=== PATIENT | female | born 1990 | race Caucasian/White ===

== ENCOUNTER 2022-12-21 08:34 | Inpatient (IN) | payer BC, OTHER ==
[~2022-12-21] VITALS: Ht 172.7 cm; Wt 98.3 kg
[2022-12-21 08:57] LABS: Urine WBC None Seen /hpf (0 - 5)
[2022-12-21 09:13] LABS: Basophils # (auto) 0 10 ^3/uL (0-0.2); Basophils % (auto) 0.5 % (0.0-2.0); Eosinophils # (auto) 0 10 ^3/uL (0-0.8); Eosinophils % (auto) 0.1 % (0.0-7.0); Hematocrit 42.6 % (36.0-46.0); Hemoglobin 14.4 g/dL (12.2-16.2); Lymphocytes # (auto) 1.4 10 ^3/uL (0.4-5.4); Lymphocytes % (auto) 14.2 % (10.0-50.0); Mean Corpuscular Hemoglobin 29.7 pg (28.0-32.0); Mean Corpuscular Hgb Conc. 33.9 g/dL (32.0-36.0); Mean Corpuscular Volume 87.7 fL (80.0-100.0); Monocytes # (auto) 0.5 10 ^3/uL (0-1.3); Monocytes % (auto) 5.1 % (0.0-12.0); Neutrophils # (auto) 7.9 10 ^3/uL (1.6-8.6); Neutrophils % (auto) 80.1 % (37.0-80.0); Red Blood Cells 4.85 10^6/uL (4.0-5.20); Red Cell Distribution Width 14.2 % (11.8-14.3); White Blood Cell 9.8 10^3/uL (4.4-10.8)
[2022-12-21 09:43] LABS: Urine Bacteria NONE SEEN /hpf (None Seen); Urine Blood Negative /uL (Negative); Urine Specific Gravity 1.005 (1.001-1.035)
[2022-12-21 09:47] LABS: Albumin 4.4 g/dL (3.4-5.0); Calcium 10.1 mg/dL (8.5-10.1); Potassium 4.1 mmol/L (3.5-5.1)
[2022-12-21 09:50] LABS: BUN/Creatinine Ratio 21.1 (10.0-20.0); Bilirubin, Total 1.3 mg/dL (0.2-1.0); Total Protein 8.2 g/dL (6.4-8.2)
[2022-12-21] MEDS ORDERED: cefTRIAXone 1GM/50ML D5W 50 ML IV ONE ×2 (11:45→13:47)
[2022-12-21] MEDS ORDERED: MORPHINE SULFATE 4 MG/ML SYR/VIAL IV ONE (11:45)
[2022-12-21] MEDS ORDERED: ONDANSETRON HCL 4 MG/2 ML VIAL IV ONE (11:45)
[2022-12-21] MEDS ORDERED: metroNIDAZOLE 500MG/100ML 100 ML IV ONE ×2 (11:45→13:47)
[2022-12-21] MEDS ORDERED: FLUT50SP NAS (12:58)
[2022-12-21] MEDS ORDERED: MET500T PO (12:58)
[2022-12-21] MEDS ORDERED: BENZ100C97 PO (12:58)
[2022-12-21] MEDS: SODIUM CHLORIDE 0.9% 1,000 ML IV SCH ×2 (13:00→23:00)
[2022-12-21] MEDS ORDERED: KETOROLAC TROMETH 30 MG/ML 1ML VIAL IV ONE (13:00)
[2022-12-21] MEDS ORDERED: PANTOPRAZOLE 40 MG/10 ML VIAL INJ IV ONE (13:15)
[2022-12-21] MEDS ORDERED: LIDOCAINE W/ EPINEPHRINE 1% 20ML VIAL ONE (13:37)
[2022-12-21] MEDS ORDERED: BUPIVACAINE 0.25% INJ 50ML VIAL ONE (13:38)
[2022-12-21] MEDS ORDERED: ceFAZolin 1GM/50ML 100 ML IV ONE (13:39)
[2022-12-21] MEDS ORDERED: HYDROmorphone HCL 2 MG/ML VL/or syr ONE (13:40)
[2022-12-21] MEDS ORDERED: ONDANSETRON HCL 4 MG/2 ML VIAL ONE (13:41)
[2022-12-21] MEDS ORDERED: MIDAZOLAM HCL 2MG/2ML 2ml VIAL (1mg/ml) ONE (13:41)
[2022-12-21] MEDS ORDERED: DexAMETHasone SOD PHOS 10MG/1ML VIAL INJ ONE (13:41)
[2022-12-21] MEDS ORDERED: KETOROLAC TROMETH 30 MG/ML 1ML VIAL ONE (13:41)
[2022-12-21] MEDS ORDERED: fentaNYL CITRATE 100 MCG/2 ML VL ONE (13:41)
[2022-12-21] MEDS ORDERED: GLYCOPYRROLATE 0.2 MG/ML 1ML VIAL ONE (13:41)
[2022-12-21] MEDS ORDERED: ROCURONIUM 10MG/ML 10ML VIAL IV ONE (13:41)
[2022-12-21] MEDS ORDERED: ePHEDrine SULFATE 50 MG/ML AMP ONE ×2 (13:41→13:54)
[2022-12-21] MEDS ORDERED: PROPOFOL 10 MG/ML 20 ML IV ONE (13:41)
[2022-12-21] MEDS ORDERED: ONDANSETRON HCL 4 MG/2 ML VIAL IV PRN ×2 (14:45→15:00)
[2022-12-21] MEDS: HYDROmorphone HCL 2 MG/ML VL/or syr IV ONE (14:45)
[2022-12-21] MEDS ORDERED: MEPERIDINE HCL (25 MG/ML) 1ML VIAL IM ONE (15:00)
[2022-12-21] MEDS ORDERED: HYDROmorphone HCL 2 MG/ML VL/or syr IV PRN (15:00)
[2022-12-21 16:00] VITALS: BP 123/62
[2022-12-21] MEDS ORDERED: MORPHINE SULFATE INJ 2 MG/ml SYRG IV PRN (17:00)
[2022-12-21 20:00] VITALS: BP 110/51
[2022-12-21] MEDS: metroNIDAZOLE 500MG/100ML 100 ML IV SCH (20:36)
[2022-12-21] MEDS: ceFAZolin 1GM/50ML 50 ML IV SCH (21:51)
[2022-12-21] MEDS: HYDROcodone-ACET 5/325MG TAB PO PRN (21:51)
[2022-12-21 22:00] VITALS: BP 110/51
[2022-12-21] MEDS ORDERED: metroNIDAZOLE 500MG/100ML 100 ML IV SCH (22:00)
[2022-12-22] MEDS: HYDROcodone-ACET 5/325MG TAB PO PRN ×2 (04:14→14:07)
[2022-12-22] MEDS: metroNIDAZOLE 500MG/100ML 100 ML IV SCH ×2 (04:36→13:00)
[2022-12-22 05:00] VITALS: BP 102/55
[2022-12-22] MEDS: ceFAZolin 1GM/50ML 50 ML IV SCH ×2 (05:59→14:00)
[2022-12-22 06:40] LABS: Basophils # (auto) 0 10 ^3/uL (0-0.2); Basophils % (auto) 0.2 % (0.0-2.0); Eosinophils # (auto) 0 10 ^3/uL (0-0.8); Hematocrit 35.5 % (36.0-46.0); Lymphocytes # (auto) 1.2 10 ^3/uL (0.4-5.4); Lymphocytes % (auto) 13.9 % (10.0-50.0); Mean Corpuscular Hemoglobin 29.9 pg (28.0-32.0); Mean Corpuscular Hgb Conc. 33.8 g/dL (32.0-36.0); Mean Corpuscular Volume 88.4 fL (80.0-100.0); Monocytes # (auto) 0.6 10 ^3/uL (0-1.3); Monocytes % (auto) 7.3 % (0.0-12.0); Neutrophils # (auto) 6.9 10 ^3/uL (1.6-8.6); Neutrophils % (auto) 78.6 % (37.0-80.0); Red Blood Cells 4.01 10^6/uL (4.0-5.20); Red Cell Distribution Width 13.8 % (11.8-14.3); White Blood Cell 8.8 10^3/uL (4.4-10.8)
[2022-12-22 06:58] LABS: Albumin 3.3 g/dL (3.4-5.0); Calcium 8.6 mg/dL (8.5-10.1); Potassium 4.1 mmol/L (3.5-5.1)
[2022-12-22 07:02] LABS: BUN/Creatinine Ratio 18.2 (10.0-20.0); Bilirubin, Total 0.7 mg/dL (0.2-1.0); Total Protein 6.3 g/dL (6.4-8.2)
[2022-12-22 08:00] VITALS: BP 106/53
[2022-12-22] MEDS ORDERED: cefTRIAXone 1GM/50ML D5W 50 ML IV SCH (09:00)
[2022-12-22] MEDS: SODIUM CHLORIDE 0.9% 1,000 ML IV SCH (09:43)
[2022-12-22] MEDS ORDERED: PANTOPRAZOLE 40 MG/10 ML VIAL INJ IV SCH (10:00)
[2022-12-22 12:00] VITALS: BP 105/61
[2022-12-22] MEDS ORDERED: METR-344 PO (13:18)
[2022-12-22] MEDS ORDERED: LEVO750T8 PO (13:18)
== END 2022-12-22 15:30 | disposition home or self-care (01) | DRG 343 ==
LOC: ER 08:34 → OVERFLOW 12:57 → WEST WING 16:36
PROVIDERS: ADMIT Nurse Practitioner Family; ATTEND Nurse Practitioner Acute Care
PROC: 0DTJ4ZZ Resection of Appendix, Percutaneous Endoscopic Approach (ICD-10-PCS; principal; 2022-12-21 14:00)
DX: K35.80 Unspecified acute appendicitis (principal)
CPT/HCPCS: 36415; 74176; 80053; 81001; 83605; 84702; 85025; 85610; 87040; 99291; C9113; G0378; J0690; J0696; J1100; J1885; J2250; J2405; J2704; J3490

== ENCOUNTER → 2023-06-05 | Outpatient (CLI) | payer BC ==
[~2023-06-05] MED LIST: BENZ100C97 PO; FLUT50SP NAS; LEVO750T8 PO; MET500T PO; METR-344 PO
[2023-06-05 08:23] LABS: Basophils # (auto) 0 10 ^3/uL (0-0.2); Basophils % (auto) 0.6 % (0.0-2.0); Eosinophils # (auto) 0.1 10 ^3/uL (0-0.8); Eosinophils % (auto) 1.8 % (0.0-7.0); Hematocrit 41.4 % (36.0-46.0); Hemoglobin 13.8 g/dL (12.2-16.2); Lymphocytes # (auto) 1.8 10 ^3/uL (0.4-5.4); Lymphocytes % (auto) 39.1 % (10.0-50.0); Mean Corpuscular Hemoglobin 29.6 pg (28.0-32.0); Mean Corpuscular Hgb Conc. 33.3 g/dL (32.0-36.0); Mean Corpuscular Volume 88.8 fL (80.0-100.0); Monocytes # (auto) 0.4 10 ^3/uL (0-1.3); Monocytes % (auto) 9.2 % (0.0-12.0); Neutrophils # (auto) 2.2 10 ^3/uL (1.6-8.6); Neutrophils % (auto) 49.3 % (37.0-80.0); Red Blood Cells 4.66 10^6/uL (4.0-5.20); Red Cell Distribution Width 13.7 % (11.8-14.3); White Blood Cell 4.5 10^3/uL (4.4-10.8)
[2023-06-05 08:51] LABS: Alanine Aminotransferase 24 U/L (7-40); Albumin 4.8 g/dL (3.2-4.8); Alkaline Phosphatase 44 U/L (46-116); Anion Gap 7 (5-15); Aspartate Aminotransferase 30 U/L (13-40); BUN/Creatinine Ratio 18.3 (10.0-20.0); Bilirubin, Total 1.3 mg/dL (0.2-1.0); Blood Urea Nitrogen 17 mg/dL (9-23); Calcium 10.2 mg/dL (8.5-10.1); Carbon Dioxide 26 mmol/L (20-30); Chloride 106 mmol/L (98-107); Cholesterol 191 mg/dL (< 200); Glucose 87 mg/dL (74-106); HDL Cholesterol 72 mg/dL (40-59); LDL Cholesterol 104 mg/dL (< 100); Sodium 139 mmol/L (136-145); Total Protein 7.5 g/dL (5.7-8.2); Triglycerides 71 mg/dL (< 150)
[2023-06-05 08:54] LABS: Urine Bacteria NONE SEEN /hpf (None Seen); Urine Blood Negative /uL (Negative); Urine Clarity Clear (Clear); Urine Color Yellow (Yellow); Urine Mucus FEW (None Seen); Urine Protein, UAD TRACE (Negative); Urine Specific Gravity 1.029 (1.001-1.035); Urine Urobilinogen Normal (Negative); Urine WBC 1 /hpf (0 - 5)
[2023-06-05 09:27] LABS: Folate (Folic Acid) 17.65 ng/mL (>5.38)
== END | disposition home or self-care (01) ==
LOC: LAB 07:50
PROVIDERS: ATTEND Internal Medicine
DX: E61.2 Magnesium deficiency (principal); R78.89 Finding of other specified substances, not normally found in blood; E78.41 Elevated Lipoprotein(a); R68.89 Other general symptoms and signs; R94.6 Abnormal results of thyroid function studies; E79.0 Hyperuricemia without signs of inflammatory arthritis and tophaceous disease; R82.991 Hypocitraturia; E55.9 Vitamin D deficiency, unspecified; R82.90 Unspecified abnormal findings in urine; R82.79 Other abnormal findings on microbiological examination of urine; D51.9 Vitamin B12 deficiency anemia, unspecified
CPT/HCPCS: 36415; 80053; 80061; 81001; 82306; 82607; 82746; 83036; 84443; 84550; 85025; 87086

== ENCOUNTER → 2023-08-09 | Outpatient (CLI) | payer BC ==
[2023-08-09 08:06] LABS: Basophils # (auto) 0 10 ^3/uL (0-0.2); Basophils % (auto) 0.6 % (0.0-2.0); Eosinophils # (auto) 0.1 10 ^3/uL (0-0.8); Eosinophils % (auto) 2.9 % (0.0-7.0); Hematocrit 43.4 % (36.0-46.0); Hemoglobin 14.1 g/dL (12.2-16.2); Lymphocytes # (auto) 1.9 10 ^3/uL (0.4-5.4); Lymphocytes % (auto) 44.8 % (10.0-50.0); Mean Corpuscular Hemoglobin 29.7 pg (28.0-32.0); Mean Corpuscular Hgb Conc. 32.5 g/dL (32.0-36.0); Mean Corpuscular Volume 91.2 fL (80.0-100.0); Monocytes # (auto) 0.3 10 ^3/uL (0-1.3); Monocytes % (auto) 7.5 % (0.0-12.0); Neutrophils # (auto) 1.9 10 ^3/uL (1.6-8.6); Neutrophils % (auto) 44.2 % (37.0-80.0); Nucleated Red Blood Cells % 0.2 %; Red Blood Cells 4.76 10^6/uL (4.0-5.20); Red Cell Distribution Width 14.5 % (11.8-14.3); White Blood Cell 4.3 10^3/uL (4.4-10.8)
[2023-08-09 08:16] LABS: Urine Bacteria NONE SEEN /hpf (None Seen); Urine Blood TRACE /uL (Negative); Urine Clarity Clear (Clear); Urine Color Yellow (Yellow); Urine Protein, UAD Negative (Negative); Urine Specific Gravity 1.022 (1.001-1.035); Urine Urobilinogen Normal (Negative); Urine WBC <1 /hpf (0 - 5)
[2023-08-09 08:55] LABS: Alanine Aminotransferase 34 U/L (7-40); Alkaline Phosphatase 49 U/L (46-116); Anion Gap 5 (5-15); BUN/Creatinine Ratio 19.8 (10.0-20.0); Blood Urea Nitrogen 18 mg/dL (9-23); Calcium 9.9 mg/dL (8.5-10.1); Carbon Dioxide 26 mmol/L (20-30); Chloride 110 mmol/L (98-107); Glucose 84 mg/dL (74-106); LDL Cholesterol 106 mg/dL (< 100); Potassium 4.9 mmol/L (3.5-5.1); Sodium 141 mmol/L (136-145); Triglycerides 60 mg/dL (< 150)
[2023-08-09 08:56] LABS: Albumin 4.7 g/dL (3.2-4.8); Aspartate Aminotransferase 37 U/L (13-40); Bilirubin, Total 0.6 mg/dL (0.2-1.0); Cholesterol 193 mg/dL (< 200); HDL Cholesterol 72 mg/dL (40-59); Total Protein 7.4 g/dL (5.7-8.2)
[2023-08-09 09:04] LABS: Folate (Folic Acid) 19.46 ng/mL (>5.38)
[2023-08-09 09:30] LABS: Uric Acid 4.1 mg/dL (3.1-7.8)
== END | disposition home or self-care (01) ==
LOC: LAB 07:44
PROVIDERS: ATTEND Internal Medicine
DX: R78.89 Finding of other specified substances, not normally found in blood (principal); E78.9 Disorder of lipoprotein metabolism, unspecified; R68.89 Other general symptoms and signs; R73.09 Other abnormal glucose
CPT/HCPCS: 36415; 80053; 80061; 81001; 82306; 82607; 82746; 83036; 84443; 84550; 85025; 87086; 87088

== ENCOUNTER → 2023-09-17 | Outpatient (CLI) | payer BC ==
[2023-09-17 10:45] LABS: Leuteinizing Hormone 9.4 IU/L; Prolactin 9.58 ng/mL (2.8-29.2)
== END | disposition home or self-care (01) ==
LOC: LAB 08:10
PROVIDERS: ATTEND Nurse Practitioner Family
DX: Z00.00 Encounter for general adult medical examination without abnormal findings (principal); N92.6 Irregular menstruation, unspecified
CPT/HCPCS: 36415; 83002; 83970; 84144; 84146; 84403

== ENCOUNTER 2023-12-15 12:41 | Emergency (ER) | payer BC ==
[~2023-12-15] VITALS: Ht 170.2 cm; Wt 76.4 kg
[2023-12-15 14:08] VITALS: BP 132/87; PULSE 74; RESP 18; TEMP 99.5; O2SAT 98
[2023-12-15] MEDS: KETOROLAC TROMETH 60MG/2ML VIAL IM ONE (14:39)
[2023-12-15] MEDS ORDERED: CYCL-839 PO (15:32)
[2023-12-15] MEDS ORDERED: IBUP-1456 PO (15:32)
== END 2023-12-15 15:56 | disposition home or self-care (01) ==
LOC: ER 12:41
DX: S86.811A Strain of other muscle(s) and tendon(s) at lower leg level, right leg, initial encounter (principal); Z79.899 Other long term (current) drug therapy; X50.1XXA Overexertion from prolonged static or awkward postures, initial encounter; Y93.02 Activity, running; Y92.89 Other specified places as the place of occurrence of the external cause; Y99.0 Civilian activity done for income or pay
CPT/HCPCS: 93971; 96372; 99285; J1885

== ENCOUNTER → 2023-12-24 | Outpatient (CLI) | payer BC ==
[~2023-12-24] MED LIST changes: +CYCL-839 PO; +IBUP-1456 PO
[2023-12-24 09:41] LABS: Urine Bacteria None Seen /hpf (None Seen)
[2023-12-24 09:57] LABS: Urine Blood Negative /uL (Negative); Urine Clarity Clear (Clear); Urine Color Light-Yellow (Yellow); Urine Protein, UAD Negative (Negative); Urine Specific Gravity 1.018 (1.001-1.035); Urine Urobilinogen Normal (Negative); Urine WBC <1 /hpf (0 - 5)
[2023-12-24 10:24] LABS: Erythrocyte Sedimentation Rate 8 mm/hr (0-20)
[2023-12-24 10:28] LABS: Alanine Aminotransferase 18 U/L (7-40); Albumin 4.7 g/dL (3.2-4.8); Alkaline Phosphatase 49 U/L (46-116); Anion Gap 3 (5-15); Aspartate Aminotransferase 18 U/L (13-40); BUN/Creatinine Ratio 25.3 (10.0-20.0); Blood Urea Nitrogen 20 mg/dL (9-23); Calcium 10.1 mg/dL (8.5-10.1); Carbon Dioxide 26 mmol/L (20-30); Chloride 107 mmol/L (98-107); Glucose 86 mg/dL (74-106); LDL Cholesterol 102 mg/dL (< 100); Magnesium 1.9 mg/dL (1.6-2.6); Potassium 4.2 mmol/L (3.5-5.1); Sodium 136 mmol/L (136-145); Triglycerides 95 mg/dL (< 150)
[2023-12-24 10:29] LABS: Bilirubin, Total 0.8 mg/dL (0.2-1.0); Cholesterol 190 mg/dL (< 200); Creatine Kinase IFCC 144 U/L (34-145); HDL Cholesterol 74 mg/dL (40-59); Total Protein 7.3 g/dL (5.7-8.2)
[2023-12-24 10:45] LABS: Uric Acid 4.4 mg/dL (3.1-7.8)
[2023-12-24 11:11] LABS: Folate (Folic Acid) 20.96 ng/mL (>5.38)
== END | disposition home or self-care (01) ==
LOC: LAB 09:25
PROVIDERS: ATTEND Internal Medicine
DX: Z03.89 Encounter for observation for other suspected diseases and conditions ruled out (principal); Z68.26 Body mass index [BMI] 26.0-26.9, adult
CPT/HCPCS: 36415; 80053; 80061; 81001; 82306; 82550; 82607; 82746; 83036; 83735; 84443; 84550; 85652; 87086